=== PATIENT | male | born 1970 | race Two or more races ===

== ENCOUNTER 2020-11-25 17:27 | Outpatient (AMBR) | payer BC, SELFPAY ==
--- NOTE | 2020-11-22 08:19 | PT.OIERPT ---
PT OP Initial Eval Patient Information Visit Reasons: shoulder pain Medical Diagnosis: M25.519 Treatment Dx #1: R shoulder pain Date of Onset: 11/22/20 Initial Assessment Subjective Pt is 49 yr old male here for R shoulder pain x3 weeks after wrestling with his son. 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 He has difficulty with lifting more than 20 lbs and reaching behind the head and back. PMH: HTN Imaging: X-ray of B shoulders in EMR Pt goal: get rid of the pain Objective R shoulder AROM: Strength:? FF: 95 deg 3/5 Abd: 90 deg 3-/5 ER: 65 deg 3-/5 HBB: to R glute with pain PROM: end-range pain with capsular tightness Jaimie Arnold: positive Drop arm: negative Painful arc: positive Assessment Pt presents with R shoulder pain and ROM is limited in capsular pattern consistent with impingement tendinitis of external rotators. Pt has limitations into external rotation and abduction ArOM. Pt requires skilled therapy to improve OH reach and decrease pain and has fair rehab potential. He may benefit from further diagnostic imaging such as MRI of R shoulder if ssx don't improve. Short Term and [employer] Specialist Goals 1. Ind with HEP 2. Improved AROM of R shoulder to 135 deg FF, 125 deg abduction and 90 deg ER 3. Improved HBB ROM to L3 4. Pt will reach OH x10 with <=4/10 pain Treatment Plan 1. Manual therapy 2. Therex 3. Modalities as indicated, moist heat pack, ice, electrical stimulation,? Frequency and Duration 2x a week for 6 weeks Certification Dates: 11/22/20 to 02/20/21 Office Procedures PT Treatments PT Date of Service: 11/22/20 OP PT Eval Mod Complex 30 minutes: Yes
--- NOTE | 2020-11-23 18:48 | PT.ODAYNRPT ---
PT Outpatient Daily Note Date of Service: 11/23/20 OP Daily Note Visit Reasons: shoulder pain Outpatient Physical Therapy Treatment Date: 11/23/20 Subjective: Pt points to the upper traps and down the brachium of the arm as site of pain after working all day. Objective: See F/S for therex MT: StM R UT and subacromial space x7' Assessment: Ssx consistent with sub acromial impingement Plan: Continue per POC Office Procedures PT Treatments PT Date of Service: 11/23/20 Therapeutic Exercise 30 minutes: Yes PT Treatments PT Date of Service: 11/22/20 OP PT Eval Mod Complex 30 minutes: Yes
--- NOTE | 2020-11-25 18:19 | PT.ODAYNRPT ---
PT Outpatient Daily Note Date of Service: 11/25/20 OP Daily Note Visit Reasons: shoulder pain Outpatient Physical Therapy Treatment Date: 11/25/20 Subjective: Pt reports his shoulder has hurt less since last therapy session and felt looser. Objective: See F/S for therex MT: StM R UT and subacromial space x7' Assessment: Ssx consistent with sub acromial impingement with good response to manual therapy and RC strengthening below 90 deg FF and abduction. Plan: Continue per POC Office Procedures PT Treatments PT Date of Service: 11/23/20 Therapeutic Exercise 30 minutes: Yes PT Treatments PT Date of Service: 11/22/20 OP PT Eval Mod Complex 30 minutes: Yes PT Treatments PT Date of Service: 11/25/20 Therapeutic Exercise 30 minutes: Yes
== END 2020-12-19 23:59 | disposition home or self-care (01) ==
PROVIDERS: PCP Family Medicine; Referring Provider Family Medicine; Visit Provider Family Medicine
DX: M25.511 Pain in right shoulder (principal); I10 Essential (primary) hypertension
CPT/HCPCS: 97110; 97162

== ENCOUNTER → 2024-01-09 | Outpatient (CLI) | payer BC, SELFPAY ==
[2024-01-09 11:51] LABS: Cardiac Risk Estimate 4.6 RATIO (4.0-6.7); Cholesterol 197 mg/dL (132-200); HDL Cholesterol 43 mg/dL (40-60); LDL Cholesterol,Calculated 113 mg/dL (0-130); Triglycerides 203 mg/dL (30-150)
== END | disposition home or self-care (01) ==
LOC: COPL 10:26
PROVIDERS: PCP Family Medicine; Referring Provider Internal Medicine Interventional Cardiology; Visit Provider Internal Medicine Interventional Cardiology
DX: R07.2 Precordial pain (principal)
CPT/HCPCS: 36415; 80061

== ENCOUNTER → 2024-02-04 | Outpatient (CLI) | payer BC, SELFPAY ==
[2024-02-04 10:31] LABS: Basophils # (Auto) 0.1 Thou/mm3 (0.0-0.2); Basophils % (Auto) 1 % (0-2.5); Eosinophils # (Auto) 0.3 Thou/mm3 (0.0-0.5); Eosinophils % (Auto) 3 % (0-10); Hematocrit 41.9 % (41.0-53.0); Hemoglobin 14.4 g/dL (13.5-16.0); Immature Granulocytes % (Auto) 0 % (0-0); Immature Granulocytes Auto 0.02 Thou/mm3 (0.00-0.00); Lymphocytes # (Auto) 2.5 Thou/mm3 (1.0-4.8); Lymphocytes % (Auto) 28 % (10-50); Mean Corpuscular HGB Conc 34.4 g/dl (31.0-37.0); Mean Corpuscular Hemoglobin 29.7 pg (25.0-35.0); Mean Corpuscular Volume 86 fL (80-100); Monocytes # (Auto) 0.6 Thou/mm3 (0.0-0.8); Monocytes % (Auto) 7 % (0-12); Neutrophils # (Auto) 5.2 Thou/mm3 (1.8-7.7); Neutrophils % (Auto) 60 % (37-80); Nucleated Red Blood Cell % 0 /100 WBC (0); Platelet Count 237 Thou/mm3 (140-440); RDW Standard Deviation 41.7 fL (35.1-43.9); Red Blood Count 4.85 Miln/mm3 (4.50-5.90); White Blood Count 8.7 Thou/mm3 (3.8-10.6)
[2024-02-04 10:51] LABS: Alanine Aminotransferase 47 U/L (10-49); Albumin, Serum 4.8 gm/dL (3.5-5.0); Albumin/Globulin Ratio 1.8 (1.2-2.2); Alkaline Phosphatase 41 U/L (46-116); Anion Gap 8 (7-16); Aspartate Amino Transferase 23 U/L (0-34); BUN/Creatinine Ratio 19 Ratio (12-20); Bilirubin,Total 0.6 mg/dL (0.3-1.2); Blood Urea Nitrogen 23 mg/dL (9-23); Calcium 9.4 mg/dL (8.3-10.6); Calcium (Corrected) 9.4 mg/dL (8.5-10.1); Carbon Dioxide 26.6 mMol/L (20.0-31.0); Chloride 105 mMol/L (98-107); Creatinine (Component) 1.2 mg/dL (0.6-1.3); Globulin 2.6 gm/dL (2.3-3.5); Glucose 93 mg/dL (74-106); Osmolality,Calculated 283 (275-295); Potassium 3.9 mMol/L (3.4-5.1); Sodium 140 mMol/L (136-145); Total Protein 7.4 gm/dL (5.7-8.2); eGFR > 60 See Note
== END | disposition home or self-care (01) ==
LOC: COPL 08:48
PROVIDERS: PCP Family Medicine; Referring Provider Internal Medicine Interventional Cardiology; Visit Provider Internal Medicine Interventional Cardiology
DX: I25.118 Atherosclerotic heart disease of native coronary artery with other forms of angina pectoris (principal)
CPT/HCPCS: 36415; 80053; 85025

== ENCOUNTER → 2024-04-21 | Outpatient (CLI) | payer BC, SELFPAY ==
[2024-04-21 11:03] LABS: Cardiac Risk Estimate 2.4 RATIO (4.0-6.7); Cholesterol 122 mg/dL (132-200); HDL Cholesterol 50 mg/dL (40-60); LDL Cholesterol,Calculated 50 mg/dL (0-130); Triglycerides 110 mg/dL (30-150)
== END | disposition home or self-care (01) ==
LOC: COPL 09:14
PROVIDERS: PCP Family Medicine; Referring Provider Internal Medicine Interventional Cardiology; Visit Provider Internal Medicine Interventional Cardiology
DX: E78.2 Mixed hyperlipidemia (principal)
CPT/HCPCS: 36415; 80061